=== PATIENT | male | born 1960 | race American Indian/Alaskan Native ===

== ENCOUNTER 2021-02-05 07:27 | Emergency (ER) | payer OTHER ==
[2021-02-05] MEDS ORDERED: CLINDAMYCIN 600 MG/50 mL 600 MG/50 ML BAG IV ONE (10:36)
[2021-02-05] MEDS ORDERED: MORPHINE 4 MG/1 ML INJ IV ONE (10:36)
[2021-02-05] MEDS ORDERED: ONDANSETRON 4 MG/2 ML INJ IV ONE (10:36)
[2021-02-05] MEDS ORDERED: SODIUM CHLORIDE 0.9% 1000 ML 1,000 ML IV ONE (10:36)
[2021-02-05] MEDS ORDERED: MORPHINE 2 MG/1 ML INJ IV ONE ×2 (10:53→10:54)
[2021-02-05 11:22] LABS: Basophils # (Auto) 0.1 K/mm3 (0.0-0.1); Eosinophils # (Auto) 0.2 K/mm3 (0.0-0.4); Eosinophils % (Auto) 3.6 % (0.0-4.3); Hematocrit 42.5 % (35.5-45.6); Hemoglobin 13.8 gm/dl (11.8-15.2); Lymphocytes % (Auto) 32.1 % (13.4-35.0); Mean Corpuscular HGB Conc 32 % (32-34); Mean Corpuscular Volume 91 fl (84-94); Monocytes # (Auto) 0.8 K/mm3 (0.0-0.8); Platelet Count 185 K/mm3 (140-440); Red Blood Count 4.65 M/mm3 (3.65-5.03); Red Cell Distribution Width 15.1 % (13.2-15.2)
--- NOTE | 2021-02-05 11:26 | XRay Report ---
XR foot 3+V LT INDICATION / CLINICAL INFORMATION: left foot swelling/warmth, left 4th toe. COMPARISON: None available. FINDINGS: BONES/JOINT(S): No acute fracture or subluxation. No significant degenerative changes. No bone destru ction to suggest osteomyelitis. SOFT TISSUES: Soft tissue swelling in the fourth toe without radiopaque foreign body or soft tissue g as. ADDITIONAL FINDINGS: None. Signer Name: Alen Anderson MD Signed: 02/05/2021 11:21 AM Workstation Name: [id number]
[2021-02-05 11:30] LABS: Alanine Aminotransferase 24 units/L (7-56); Albumin 3.8 g/dL (3.9-5); BUN/Creatinine Ratio 12; Blood Urea Nitrogen 11 mg/dL (9-20); Calcium 8.7 mg/dL (8.4-10.2); Hemolysis Index 5; Uric Acid 4.8 mg/dL (3.5-7.6)
[2021-02-05 11:58] VITALS: BP 146/77
--- NOTE | 2021-02-05 12:14 | Emergency Department Report ---
ED Extremity Problem HPI - General Chief complaint: Extremity Problem,Nontraumatic Stated complaint: INFECTION 4TH TOE LEFT FOOT Time Seen by Provider: 02/05/21 10:12 Source: patient Mode of arrival: Wheelchair Limitations: No Limitations - History of Present Illness Initial comments: Patient is a 60-year-old male presents emergency room with a possible left fourth toe infection that began 5 days ago. Patient states that at his work he frequently works around water and that his socks will get damp. He states that he saw a doctor at his job 5 days ago and was prescribed Lotrimin and tizanidine. He reports he was also supposed to get an ibuprofen prescription but states he was not given ibuprofen. He states he has had swelling and pain to his fourth toe in his left foot. He denies any fever, drainage, numbness, weakness. He states he has pain with ambulation. Patient states he has a history of gout. No allergies to medications. Severity scale (0 -10): 5 - Related Data Previous Rx's Medication Instructions Recorded Last Taken Type Clindamycin [Clindamycin CAP] 450 mg PO TID 7 Days #63 capsule 02/05/21 Unknown Rx Ibuprofen [Motrin 600 MG tab] 600 mg PO Q8H PRN #14 tablet 02/05/21 Unknown Rx traMADoL [Ultram 50 MG tab] 50 mg PO Q6HR PRN #10 tablet 02/05/21 Unknown Rx Allergies Allergy/AdvReac Type Severity Reaction Status Date / Time No Known Allergies Allergy Verified 02/05/21 08:01 ED Review of Systems ROS: Stated complaint: INFECTION 4TH TOE LEFT FOOT Other details as noted in HPI Comment: All other systems reviewed and negative ED Past Medical Hx - Medications Home Medications: Home Medications Medication Instructions Recorded Confirmed Last Taken Type Clindamycin [Clindamycin CAP] 450 mg PO TID 7 Days #63 capsule 02/05/21 Unknown Rx Ibuprofen [Motrin 600 MG tab] 600 mg PO Q8H PRN #14 tablet 02/05/21 Unknown Rx traMADoL [Ultram 50 MG tab] 50 mg PO Q6HR PRN #10 tablet 02/05/21 Unknown Rx ED Physical Exam - General Limitations: No Limitations General appearance: alert, in no apparent distress - Head Head exam: Present: atraumatic, normocephalic - Eye Eye exam: Present: normal appearance - ENT ENT exam: Present: mucous membranes moist - Extremities Exam Extremities exam: Present: other (edema and ttp to the left 4th toe and left dorsal foot, there is increased warmth, no obvious erythema, there is a small shallow ulceration present to the left 4th toe, no drainage, FROM, neurovascularly intact) - Neurological Exam Neurological exam: Present: alert, oriented X3 - Psychiatric Psychiatric exam: Present: normal affect, normal mood - Skin Skin exam: Present: warm, dry ED Course Vital Signs 02/05/21 02/05/21 07:57 11:54 Temperature 99.2 F 97.4 F L Pulse Rate 57 L 61 Respiratory 16 16 Rate Blood Pressure 99/57 146/77 [Right] O2 Sat by Pulse 98 97 Oximetry ED Medical Decision Making - Lab Data Result diagrams: 02/05/21 10:41 02/05/21 10:41 Lab Results 02/05/21 02/05/21 02/05/21 Range/Units 10:41 10:41 10:41 WBC 6.3 (4.5-11.0) K/mm3 RBC 4.65 (3.65-5.03) M/mm3 Hgb 13.8 (11.8-15.2) gm/dl Hct 42.5 (35.5-45.6) % MCV 91 (84-94) fl MCH 30 (28-32) pg MCHC 32 (32-34) % RDW 15.1 (13.2-15.2) % Plt Count 185 (140-440) K/mm3 Lymph % (Auto) 32.1 (13.4-35.0) % [place] % (Auto) 13.0 H (0.0-7.3) % Eos % (Auto) 3.6 (0.0-4.3) % Baso % (Auto) 1.0 (0.0-1.8) % Lymph # (Auto) 2.0 (1.2-5.4) K/mm3 Gosper # (Auto) 0.8 (0.0-0.8) K/mm3 Eos # (Auto) 0.2 (0.0-0.4) K/mm3 Baso # (Auto) 0.1 (0.0-0.1) K/mm3 Seg Neutrophils % 50.3 (40.0-70.0) % Seg Neutrophils # 3.2 (1.8-7.7) K/mm3 Sodium 137 (137-145) mmol/L Potassium 4.1 (3.6-5.0) mmol/L Chloride 102.3 (98-107) mmol/L Carbon Dioxide 24 (22-30) mmol/L Anion Gap 15 mmol/L BUN 11 (9-20) mg/dL Creatinine 0.9 (0.8-1.3) mg/dL Estimated GFR > 60 ml/min BUN/Creatinine Ratio 12 % Glucose 79 (75-100) mg/dL Lactic Acid 0.90 (0.7-2.0) mmol/L Uric Acid 4.8 (3.5-7.6) mg/dL Calcium 8.7 (8.4-10.2) mg/dL Total Bilirubin 0.90 (0.1-1.2) mg/dL AST 22 (5-40) units/L ALT 24 (7-56) units/L Alkaline Phosphatase 88 (35-129) units/L Total Protein 7.6 (6.3-8.2) g/dL Albumin 3.8 L (3.9-5) g/dL Albumin/Globulin Ratio 1.0 % Vital Signs 02/05/21 02/05/21 07:57 11:54 Temperature 99.2 F 97.4 F L Pulse Rate 57 L 61 Respiratory 16 16 Rate Blood Pressure 99/57 146/77 [Right] O2 Sat by Pulse 98 97 Oximetry - Radiology Data Radiology results: report reviewed Ordering Physician: HARISH DAS Date of Service: 02/05/21 Procedure(s): XR foot 3+V LT Accession Number(s): [id number] cc: HARISH DAS Fluoro Time In Minutes: XR foot 3+V LT INDICATION / CLINICAL INFORMATION: left foot swelling/warmth, left 4th toe. COMPARISON: None available. FINDINGS: BONES/JOINT(S): No acute fracture or subluxation. No significant degenerative changes. No bone destruction to suggest osteomyelitis. SOFT TISSUES: Soft tissue swelling in the fourth toe without radiopaque foreign body or soft tissue gas. ADDITIONAL FINDINGS: None. Signer Name: Alen Anderson MD Signed: 02/05/2021 11:21 AM Workstation Name: [id number] Transcribed By: SAMREEN Dictated By: Alen Anderson MD Electronically Authenticated By: Alen Anderson MD Signed Date/Time: 02/05/211120 DD/ 20 TD/TT: Print - Medical Decision Making Patient is a 60-year-old male presents emergency room with a possible left fourth toe infection that began 5 days ago. Patient states that at his work he frequently works around water and that his socks will get damp. He states that he saw a doctor at his job 5 days ago and was prescribed Lotrimin and tizanidine. He reports he was also supposed to get an ibuprofen prescription but states he was not given ibuprofen. He states he has had swelling and pain to his fourth toe in his left foot. He denies any fever, drainage, numbness, weakness. He states he has pain with ambulation. Patient states he has a history of gout. No allergies to medications. Patient is afebrile, no tachycardia. On exam: edema and ttp to the left 4th toe and left dorsal foot, there is increased warmth, no obvious erythema, there is a small shallow ulceration present to the left 4th toe, no drainage, FROM, neurovascularly intact. Labs are normal, no lactic acidosis, no leukocytosis. X-ray left foot BONES/JOINT(S): No acute fracture or subluxation. No significant degenerative changes. No bone destruction to suggest osteomyelitis. SOFT TISSUES: Soft tissue swelling in the fourth toe without radiopaque foreign body or soft tissue gas. ADDITIONAL FINDINGS: None. Patient given IV clindamycin on the emergency department. Discussed case with Dr. Elliott, ER attending who evaluated patient at bedside and advised oral antibiotic therapy and outpatient podiatry follow-up. Discussed all results with patient and discussed the importance of follow-up and strict return precautions. advised pt Please take medication as prescribed. Please follow-up with your primary care doctor. Please follow-up with a junior web developer. You need to have area reexamined in the next 3 days. Return to emergency room immediately for any new or worsening symptoms including but not limited to worsening swelling, worsening pain, fever, vomiting, drainage, etc. Critical care attestation.: If time is entered above; I have spent that time in minutes in the direct care of this critically ill patient, excluding procedure time. ED Disposition Clinical Impression: Cellulitis Qualifiers: Site of cellulitis: extremity Site of cellulitis of extremity: lower extremity Laterality: left Qualified Code(s): L03.116 - Cellulitis of left lower limb Toe ulcer Qualifiers: Laterality: left Non-pressure ulcer stage: limited to breakdown of skin Qualified Code(s): L97.521 - Non-pressure chronic ulcer of other part of left foot limited to breakdown of skin Disposition: 01 HOME / SELF CARE / HOMELESS Is pt being admited?: No Does the pt Need Aspirin: No Condition: Stable Instructions: Cellulitis, Adult Additional Instructions: Please take medication as prescribed. Please follow-up with your primary care doctor. Please follow-up with a junior web developer. You need to have area reexamined in the next 3 days. Return to emergency room immediately for any new or worsening symptoms including but not limited to worsening swelling, worsening pain, fever, vomiting, drainage, etc. Prescriptions: Clindamycin [Clindamycin CAP] 450 mg PO TID 7 Days #63 capsule Ibuprofen [Motrin 600 MG tab] 600 mg PO Q8H PRN #14 tablet PRN Reason: Pain traMADoL [Ultram 50 MG tab] 50 mg PO Q6HR PRN #10 tablet PRN Reason: Pain , Severe (7-10) Referrals: PRIMARY CARE, [Primary Care Provider] - 2-3 Days EGDAR RASCON DPM [Staff Physician] - 2-3 Days Forms: Work/School Release Form(ED) Time of Disposition: 12:13 Print Language: OMANI
== END 2021-02-05 13:05 | disposition home or self-care (01) ==
LOC: EDBD → ED 07:27
DX: L03.116 Cellulitis of left lower limb (principal); L97.521 Non-pressure chronic ulcer of other part of left foot limited to breakdown of skin
CPT/HCPCS: 36415; 73630; 80053; 82140; 84550; 85025; 87040; 96365; 96375; 99284; J2270; J2405; J7030